=== PATIENT | female | born 1990 | race Caucasian/White ===

== ENCOUNTER 2019-09-08 21:26 | Observation (INO) | payer MEDICAID ==
[~2019-09-08] VITALS: Ht 162.6 cm; Wt 97.1 kg
[2019-09-08] MEDS ORDERED: QUET300T2 PO (22:01)
[2019-09-08] MEDS ORDERED: PREN-182 MT (22:01)
[2019-09-08] MEDS ORDERED: HAL5 GT (22:03)
[2019-09-08] MEDS ORDERED: SERT50TA PO (22:05)
[2019-09-08] MEDS ORDERED: SERT25TA PO (22:05)
[2019-09-08] MEDS ORDERED: B50 GT (22:07)
[2019-09-08 23:02] LABS: CLARITY URINE CLEAR (CLEAR); COLOR URINE YELLOW (YELLOW); KETONES URINE NEGATIVE (NEGATIVE); LEUKOCYTE ESTERASE URINE NEGATIVE (NEGATIVE); NITRITE URINE NEGATIVE (NEGATIVE); OCCULT BLOOD URINE NEGATIVE (NEGATIVE); PROTEIN URINE NEGATIVE (NEGATIVE); SPECIFIC GRAVITY URINE 1.014 (1.005-1.030)
== END 2019-09-09 01:49 | disposition home or self-care (01) ==
LOC: 8 EST LDRP 21:26
PROVIDERS: ADMIT Obstetrics & Gynecology; ATTEND Obstetrics & Gynecology
DX: O62.9 Abnormality of forces of labor, unspecified (principal); O26.892 Other specified pregnancy related conditions, second trimester; R10.9 Unspecified abdominal pain; Z3A.24 24 weeks gestation of pregnancy
CPT/HCPCS: 76805; 81003; 99281; G0378